=== PATIENT | female | born 1950 | race Two or more races ===

== ENCOUNTER 2019-10-14 15:01 | Emergency (ER) | payer OTHER, MEDICAID ==
[~2019-10-14] VITALS: Ht 165.1 cm; Wt 60.8 kg
[~2019-10-14 15:01] MED LIST: ALBUAER3 IN; IBUP600T27 PO; METH10T PO; OMEP20CA74 PO
[2019-10-14] MEDS ORDERED: CLINDAMYCIN 600 MG/4 ML VL IM ONE (16:30)
[2019-10-14 16:39] LABS: Eosinophils # (auto) 0.1 10 ^3/uL (0-0.8); Hematocrit 38.7 % (36.0-46.0); Hemoglobin 13.1 g/dL (12.2-16.2); Red Blood Cells 5.02 10^6/uL (4.0-5.20)
[2019-10-14 16:41] LABS: Basophils # (auto) 0.1 10 ^3/uL (0-0.2); Eosinophils % (auto) 1.9 % (0.0-7.0); Mean Corpuscular Hemoglobin 26.2 pg (28.0-32.0); Mean Corpuscular Hgb Conc. 33.9 g/dL (32.0-36.0); Mean Corpuscular Volume 77.2 fL (80.0-100.0); Monocytes # (auto) 0.4 10 ^3/uL (0-1.3); Neutrophils # (auto) 3.6 10 ^3/uL (1.6-8.6); Neutrophils % (auto) 70.1 % (37.0-80.0); Nucleated Red Blood Cells % 0.2 %; Platelet Count (auto) 138 10^3/uL (140-450); Red Cell Distribution Width 17.2 % (11.8-14.3); White Blood Cell 5.2 10^3/uL (4.4-10.8)
[2019-10-14 16:53] LABS: Albumin 3.2 g/dL (3.4-5.0); Calcium 8.5 mg/dL (8.5-10.1); Potassium 3.7 mmol/L (3.5-5.1)
[2019-10-14 16:56] LABS: BUN/Creatinine Ratio 16.1; Bilirubin, Total 0.8 mg/dL (0.2-1.0); Total Protein 7.2 g/dL (6.4-8.2)
[2019-10-14 17:33] LABS: Lactic Acid w/Reflex 2.1 mmol/L (0.4-2.0)
[2019-10-14 18:34] VITALS: BP 108/60
== END 2019-10-14 18:33 | disposition home or self-care (01) ==
LOC: ER 15:01
DX: L03.115 Cellulitis of right lower limb (principal); J44.9 Chronic obstructive pulmonary disease, unspecified; N18.3 Chronic kidney disease, stage 3 (moderate); R79.89 Other specified abnormal findings of blood chemistry
CPT/HCPCS: 36415; 73700; 80053; 83605; 85025; 87040; 96372

== ENCOUNTER 2020-07-02 18:41 | Emergency (ER) | payer OTHER, MEDICAID ==
[~2020-07-02] VITALS: Ht 167.6 cm; Wt 65.3 kg
[2020-07-02] MEDS ORDERED: IPRATROPIUM BROM 0.5 MG/2.5ML INH SOL HHN ONE (19:30)
[2020-07-02] MEDS ORDERED: ALBUTEROL SULF 2.5 MG/0.5ML(0.5%) NEB SOLN HHN ONE (19:30)
[2020-07-02] MEDS ORDERED: methylPREDNISolone SOD SUCC 125 MG/2 ML VL IV ONE (19:30)
[2020-07-02] MEDS ORDERED: AZITHROMYCIN 500MG/ 250ML 250 ML IV ONE (20:15)
[2020-07-02 20:41] LABS: Eosinophils # (auto) 0.1 10 ^3/uL (0-0.8); Hematocrit 37.6 % (36.0-46.0); Hemoglobin 12.8 g/dL (12.2-16.2); Lymphocytes # (auto) 1.4 10 ^3/uL (0.4-5.4); Monocytes # (auto) 0.6 10 ^3/uL (0-1.3); Monocytes % (auto) 13.4 % (0.0-12.0); Neutrophils # (auto) 2.5 10 ^3/uL (1.6-8.6); White Blood Cell 4.7 10^3/uL (4.4-10.8)
[2020-07-02 20:42] LABS: Basophils # (auto) 0 10 ^3/uL (0-0.2); Eosinophils % (auto) 1.6 % (0.0-7.0); Lymphocytes % (auto) 30.8 % (10.0-50.0); Mean Corpuscular Hemoglobin 24.5 pg (28.0-32.0); Mean Corpuscular Volume 71.9 fL (80.0-100.0); Neutrophils % (auto) 53.2 % (37.0-80.0); Nucleated Red Blood Cells % 0.9 %; Platelet Count (auto) 138 10^3/uL (140-450); Red Blood Cells 5.23 10^6/uL (4.0-5.20)
[2020-07-02 20:56] LABS: Albumin 3.2 g/dL (3.4-5.0); Anion Gap 8 (5-15); Blood Urea Nitrogen 22 mg/dL (7-18); Calcium 8.5 mg/dL (8.5-10.1); Carbon Dioxide 24 mmol/L (21-32); Chloride 108 mmol/L (98-107); Glucose 99 mg/dL (74-106); Potassium 3.6 mmol/L (3.5-5.1); Sodium 140 mmol/L (136-145)
[2020-07-02 21:01] LABS: Alanine Aminotransferase 15 U/L (13-56); Alkaline Phosphatase 83 U/L (45-117); Aspartate Aminotransferase 30 U/L (15-37); Bilirubin, Total 0.9 mg/dL (0.2-1.0); GFR African American 45 mL/min; GFR Non-African American 37 mL/min
[2020-07-02] MEDS ORDERED: cefTRIAXone 1GM/50ML D5W 50 ML IV ONE (21:15)
[2020-07-02 23:00] VITALS: BP 121/63
== END 2020-07-02 23:55 | disposition designated cancer center or children's hospital (05) ==
LOC: ER 18:41
DX: J44.1 Chronic obstructive pulmonary disease with (acute) exacerbation (principal); J84.9 Interstitial pulmonary disease, unspecified; R09.02 Hypoxemia; H74.8X1 Other specified disorders of right middle ear and mastoid; F17.210 Nicotine dependence, cigarettes, uncomplicated; K21.9 Gastro-esophageal reflux disease without esophagitis; Z20.822 Contact with and (suspected) exposure to COVID-19
CPT/HCPCS: 36415; 36600; 71045; 80053; 82805; 83605; 83880; 84484; 85025; 87040; 87426; 93005; 94010; 94640; 96365; 96366; 96367; 96375; 99285; J0456; J0696; J2930; J7644

== ENCOUNTER 2020-09-04 12:23 | Inpatient (IN) | payer OTHER, MEDICAID ==
[~2020-09-04] VITALS: Ht 170.2 cm; Wt 63.3 kg
[2020-09-04] MEDS ORDERED: CLINDAMYCIN 600MG IV 50 ML IV ONE (13:00)
[2020-09-04] MEDS ORDERED: SODIUM CHLORIDE 0.9% 500 ML IV ONE (13:00)
[2020-09-04 14:40] LABS: Basophils # (auto) 0.1 10 ^3/uL (0-0.2); Eosinophils # (auto) 0 10 ^3/uL (0-0.8); Hemoglobin 12.6 g/dL (12.2-16.2); Lymphocytes # (auto) 0.7 10 ^3/uL (0.4-5.4); Red Cell Distribution Width 19.2 % (11.8-14.3); White Blood Cell 6.2 10^3/uL (4.4-10.8)
[2020-09-04 14:41] LABS: Basophils % (auto) 1.2 % (0.0-2.0); Eosinophils % (auto) 0.3 % (0.0-7.0); Hematocrit 36.7 % (36.0-46.0); Lymphocytes % (auto) 11.2 % (10.0-50.0); Mean Corpuscular Hemoglobin 24.5 pg (28.0-32.0); Mean Corpuscular Hgb Conc. 34.5 g/dL (32.0-36.0); Mean Corpuscular Volume 70.9 fL (80.0-100.0); Monocytes # (auto) 0.4 10 ^3/uL (0-1.3); Monocytes % (auto) 6.7 % (0.0-12.0); Neutrophils % (auto) 80.6 % (37.0-80.0); Nucleated Red Blood Cells % 0.2 %; Red Blood Cells 5.17 10^6/uL (4.0-5.20)
[2020-09-04 14:48] LABS: Lactic Acid w/Reflex 2.2 mmol/L (0.4-2.0)
[2020-09-04 14:58] LABS: Calcium 9.6 mg/dL (8.5-10.1); Potassium 4.3 mmol/L (3.5-5.1)
[2020-09-04 15:01] LABS: Total Protein 6.2 g/dL (6.4-8.2)
[2020-09-04] MEDS ORDERED: NITROGLYCERIN 0.4 MG SL TAB SL PRN (17:15)
[2020-09-04] MEDS ORDERED: ONDANSETRON HCL 4 MG/2 ML VIAL IV PRN (17:15)
[2020-09-04] MEDS ORDERED: HYDROmorphone HCL 2 MG/ML VL IV PRN (17:15)
[2020-09-04] MEDS ORDERED: MORPHINE SULF INJ 2 MG/ML SYRINGE 1ML IV PRN (17:15)
[2020-09-04] MEDS: cefTRIAXone 1GM/50ML D5W 50 ML IV SCH (18:30)
[2020-09-04 21:20] VITALS: BP 134/71
[2020-09-04] MEDS: CLINDAMYCIN 300MG IV 50 ML IV SCH (22:55)
[2020-09-05 05:17] VITALS: BP 128/71
[2020-09-05] MEDS: CLINDAMYCIN 300MG IV 50 ML IV SCH ×3 (05:54→21:58)
[2020-09-05 06:13] LABS: Basophils # (auto) 0.1 10 ^3/uL (0-0.2); Basophils % (auto) 0.9 % (0.0-2.0); Eosinophils # (auto) 0 10 ^3/uL (0-0.8); Eosinophils % (auto) 0.3 % (0.0-7.0); Hematocrit 33.5 % (36.0-46.0); Hemoglobin 11.8 g/dL (12.2-16.2); Lymphocytes # (auto) 0.9 10 ^3/uL (0.4-5.4); Lymphocytes % (auto) 11.9 % (10.0-50.0); Mean Corpuscular Hemoglobin 24.9 pg (28.0-32.0); Mean Corpuscular Hgb Conc. 35.2 g/dL (32.0-36.0); Mean Corpuscular Volume 70.6 fL (80.0-100.0); Monocytes # (auto) 0.6 10 ^3/uL (0-1.3); Monocytes % (auto) 8.1 % (0.0-12.0); Neutrophils # (auto) 6.2 10 ^3/uL (1.6-8.6); Neutrophils % (auto) 78.8 % (37.0-80.0); Nucleated Red Blood Cells % 0.1 %; Red Blood Cells 4.75 10^6/uL (4.0-5.20); Red Cell Distribution Width 19.1 % (11.8-14.3); White Blood Cell 7.8 10^3/uL (4.4-10.8)
[2020-09-05 06:36] LABS: Calcium 9.2 mg/dL (8.5-10.1); Potassium 4.7 mmol/L (3.5-5.1)
[2020-09-05 06:40] LABS: BUN/Creatinine Ratio 27.9
[2020-09-05 09:00] VITALS: BP 114/61
[2020-09-05] MEDS ORDERED: METHADONE HCL 10 MG TAB PO ONE (10:00)
[2020-09-05] MEDS ORDERED: ENOXAPARIN SOD 40 MG/0.4 ML SYRINGE SC SCH (10:00)
[2020-09-05] MEDS: cefTRIAXone 1GM/50ML D5W 50 ML IV SCH (10:13)
[2020-09-05 13:00] VITALS: BP_SYST 103; BP_SYST 123; BP_DIAS 55; BP_DIAS 68
[2020-09-05] MEDS: METHADONE HCL 10 MG TAB PO SCH ×2 (14:50→22:08)
[2020-09-05 18:17] VITALS: BP 103/55
[2020-09-05 22:00] VITALS: BP 98/49
[2020-09-05] MEDS: DOCUSATE SOD 100 MG CAP PO SCH (22:39)
[2020-09-06] MEDS: CLINDAMYCIN 300MG IV 50 ML IV SCH ×2 (05:10→13:59)
[2020-09-06 05:24] VITALS: BP 125/55
[2020-09-06] MEDS: METHADONE HCL 10 MG TAB PO SCH ×3 (06:00→21:31)
[2020-09-06 09:00] VITALS: BP 134/61
[2020-09-06] MEDS: DOCUSATE SOD 100 MG CAP PO SCH ×3 (10:00→21:41)
[2020-09-06] MEDS: cefTRIAXone 1GM/50ML D5W 50 ML IV SCH (10:06)
[2020-09-06 10:21] LABS: Basophils # (auto) 0 10 ^3/uL (0-0.2); Eosinophils # (auto) 0.1 10 ^3/uL (0-0.8); Eosinophils % (auto) 1.4 % (0.0-7.0); Hemoglobin 11.2 g/dL (12.2-16.2); Mean Corpuscular Hemoglobin 24.7 pg (28.0-32.0); Mean Corpuscular Hgb Conc. 34.5 g/dL (32.0-36.0); Mean Corpuscular Volume 71.6 fL (80.0-100.0); Neutrophils # (auto) 4.3 10 ^3/uL (1.6-8.6); White Blood Cell 6.3 10^3/uL (4.4-10.8)
[2020-09-06 10:22] LABS: Basophils % (auto) 0.7 % (0.0-2.0); Hematocrit 32.4 % (36.0-46.0); Lymphocytes # (auto) 1.1 10 ^3/uL (0.4-5.4); Lymphocytes % (auto) 17.2 % (10.0-50.0); Monocytes # (auto) 0.7 10 ^3/uL (0-1.3); Monocytes % (auto) 11.8 % (0.0-12.0); Neutrophils % (auto) 68.9 % (37.0-80.0); Nucleated Red Blood Cells % 0.1 %; Red Blood Cells 4.52 10^6/uL (4.0-5.20); Red Cell Distribution Width 19.8 % (11.8-14.3)
[2020-09-06 10:39] LABS: Potassium 4.6 mmol/L (3.5-5.1)
[2020-09-06 10:50] LABS: BUN/Creatinine Ratio 28.9; Calcium 9.4 mg/dL (8.5-10.1); Magnesium 2.6 mg/dL (1.6-2.6)
[2020-09-06] MEDS ORDERED: FLEET ENEMA(ADULT) 135 ML PR ONE (12:00)
[2020-09-06] MEDS ORDERED: BISACODYL 10 MG RECT SUPP PR PRN (12:00)
[2020-09-06 13:00] VITALS: BP 115/65
[2020-09-06 17:00] VITALS: BP 126/59
[2020-09-06] MEDS: CLINDAMYCIN HCL 150 MG CAP PO SCH (21:27)
[2020-09-06] MEDS: levoFLOXacin 500 MG TAB PO SCH (21:29)
[2020-09-06 22:00] VITALS: BP 121/74
[2020-09-07 05:00] VITALS: BP 122/63
[2020-09-07] MEDS: CLINDAMYCIN HCL 150 MG CAP PO SCH ×3 (05:26→21:34)
[2020-09-07] MEDS: METHADONE HCL 10 MG TAB PO SCH ×3 (05:26→21:34)
[2020-09-07 05:52] LABS: Alcohol, Urine < 3.0 mg/dL (0-10); Amphetamine Screen, Urine NEGATIVE (NEGATIVE); Barbiturate Scree,Urine NEGATIVE (NEGATIVE); Benzodiazephine Screen, Urine NEGATIVE (NEGATIVE); Cannabinoid Screen, Urine NEGATIVE (NEGATIVE); Cocaine Screen, Urine NEGATIVE (NEGATIVE); Opiate Scree,Urine NEGATIVE (NEGATIVE); Phencyclidine Screen, Urine NEGATIVE (NEGATIVE)
[2020-09-07 09:00] VITALS: BP 113/63
[2020-09-07] MEDS: DOCUSATE SOD 100 MG CAP PO SCH ×2 (10:40→21:34)
[2020-09-07 13:00] VITALS: BP 129/76
[2020-09-07 17:00] VITALS: BP 108/69
[2020-09-07] MEDS: HYDROcodone-ACET 5/325MG TAB PO PRN (17:42)
[2020-09-07] MEDS: levoFLOXacin 500 MG TAB PO SCH (21:34)
[2020-09-07 22:00] VITALS: BP 113/65
[2020-09-08 05:00] VITALS: BP 112/68
[2020-09-08] MEDS: CLINDAMYCIN HCL 150 MG CAP PO SCH ×3 (05:40→22:06)
[2020-09-08] MEDS: METHADONE HCL 10 MG TAB PO SCH ×3 (05:42→22:06)
[2020-09-08] MEDS: DOCUSATE SOD 100 MG CAP PO SCH ×2 (08:57→22:06)
[2020-09-08 09:00] VITALS: BP 122/60
[2020-09-08] MEDS: HYDROcodone-ACET 5/325MG TAB PO PRN ×2 (09:03→21:01)
[2020-09-08 17:00] VITALS: BP 122/67
[2020-09-08 22:00] VITALS: BP 118/68
[2020-09-08] MEDS: levoFLOXacin 500 MG TAB PO SCH (22:05)
[2020-09-08] MEDS: FAMOTIDINE 20 MG TAB PO SCH (22:06)
[2020-09-09] MEDS: HYDROcodone-ACET 5/325MG TAB PO PRN ×2 (03:21→12:39)
[2020-09-09 05:00] VITALS: BP 119/63
[2020-09-09] MEDS: CLINDAMYCIN HCL 150 MG CAP PO SCH ×3 (06:08→21:49)
[2020-09-09] MEDS: METHADONE HCL 10 MG TAB PO SCH ×3 (06:08→21:50)
[2020-09-09 09:00] VITALS: BP 145/96
[2020-09-09] MEDS: DOCUSATE SOD 100 MG CAP PO SCH ×2 (09:12→21:57)
[2020-09-09] MEDS: FAMOTIDINE 20 MG TAB PO SCH (09:13)
[2020-09-09 12:36] VITALS: BP 131/68
[2020-09-09 17:00] VITALS: BP 130/76
[2020-09-09] MEDS: levoFLOXacin 500 MG TAB PO SCH (21:49)
[2020-09-09 21:59] VITALS: BP 146/75
== END 2020-09-10 03:48 | disposition home health service (06) | DRG 603 ==
LOC: ER 12:23 → TELE 18:59 → TELE-WESTW 21:13
PROVIDERS: ADMIT Nurse Practitioner Acute Care; ATTEND Internal Medicine Geriatric Medicine
DX: L03.115 Cellulitis of right lower limb (principal); E44.0 Moderate protein-calorie malnutrition; L03.116 Cellulitis of left lower limb; Z20.822 Contact with and (suspected) exposure to COVID-19; J44.9 Chronic obstructive pulmonary disease, unspecified; N18.32 Chronic kidney disease, stage 3b; G89.4 Chronic pain syndrome; I70.0 Atherosclerosis of aorta; K21.9 Gastro-esophageal reflux disease without esophagitis; F17.210 Nicotine dependence, cigarettes, uncomplicated; K59.00 Constipation, unspecified; Z79.891 Long term (current) use of opiate analgesic; Z82.5 Family history of asthma and other chronic lower respiratory diseases; Z79.899 Other long term (current) drug therapy; Z90.49 Acquired absence of other specified parts of digestive tract; R09.02 Hypoxemia
CPT/HCPCS: 36415; 36600; 71046; 73700; 80048; 80053; 80307; 82805; 83605; 83735; 83880; 84443; 85025; 85379; 85652; 87040; 87426; 93005; 93306; 96365; 96375; G0378; J0696; J2405; J3490